=== PATIENT | male | born 1955 | race Hispanic/Latino ===

== ENCOUNTER 2018-10-04 05:12 | Emergency (ER) | payer BC ==
[2018-10-04 05:26] VITALS: RESP 16
[2018-10-04] MEDS ORDERED: Magnesium Citrate Oral SOL (300 ml) PO STA (05:46)
--- NOTE | 2018-10-04 05:55 | C.PDOC ---
History Of Present Illness 62 year old male with constipation since yesterday. Patient tried drinking salad dressing to relieve himself with no relief. He states he is able to go little watery amounts at a time but feels something blocking his rectum. Patient reports pain in his rectum but denies abdominal pain or rectal bleeding. Time Seen by Provider: 10/04/18 05:27 Chief Complaint (Nursing): GI Problem History Per: Patient History/Exam Limitations: no limitations Onset/Duration Of Symptoms: Days (Yesterday) Current Symptoms Are (Timing): Still Present Recent travel outside of the [place] States: No Past Medical History Reviewed: Historical Data, Nursing Documentation, Vital Signs Vital Signs: Last Vital Signs Temp 97.6 F 10/04/18 05:23 Pulse 98 H 10/04/18 05:23 Resp 16 10/04/18 05:23 BP 164/99 H 10/04/18 05:23 Pulse Ox 97 10/04/18 05:23 - Medical History PMH: HTN, Hyperlipidemia Family History: States: No Known Family Hx - Social History Hx Alcohol Use: Yes Hx Substance Use: No Review Of Systems Constitutional: Negative for: Fever, Chills Gastrointestinal: Positive for: Constipation, Rectal Pain. Negative for: Nausea, Vomiting, Abdominal Pain, Diarrhea, Other (Rectal bleed) Musculoskeletal: Negative for: Back Pain Physical Exam - Physical Exam Appears: Non-toxic, Other (Uncomfortable) Skin: Normal Color, Warm, No Rash Head: Atraumatic, Normacephalic Eye(s): bilateral: Normal Inspection Oral Mucosa: Moist Chest: Symmetrical Respiratory: No Accessory Muscle Use, Other (Normal inspiratory effort) Gastrointestinal/Abdominal: Soft, No Tenderness, No Distention Rectal: Other (Hard stool in rectum, no blood) Back: No CVA Tenderness Neurological/Psych: Oriented x3, Normal Speech, Normal Cranial Nerves (Grossly intact) ED Course And Treatment O2 Sat by Pulse Oximetry: 97 (Room air) Pulse Ox Interpretation: Normal Medical Decision Making Medical Decision Making: Fleet enema and mag citrate given patient had a partial BM after enema. he states he still feels like there is stool in his rectum but does admit to mild relief. he states he will go home to pass more stool. Disposition Counseled Patient/Family Regarding: Diagnosis, Need For Followup, Rx Given - Disposition Referrals: [facility] [Outside] Disposition: HOME/ ROUTINE Disposition Time: 06:28 Condition: STABLE Prescriptions: Polyethylene Glycol 3350 [Miralax] 17 gm PO ONCE #1 powd.pack Instructions: Constipation, Adult (DC) Forms: [facility] (Macedonian), General Discharge Instructions - Clinical Impression Clinical Impression: Constipation - PA / [employer] / Resident Statement MD/DO has reviewed & agrees with the documentation as recorded. - Scribe Statement The provider has reviewed the documentation as recorded by the Scribe [place] All medical record entries made by the Scribe were at my direction and personally dictated by me. I have reviewed the chart and agree that the record accurately reflects my personal performance of the history, physical exam, medical decision making, and the department course for this patient. I have also personally directed, reviewed, and agree with the discharge instructions and disposition.
[2018-10-04] MEDS ORDERED: Magnesium Citrate Oral SOL (300 ml) ONE (05:56)
[2018-10-04 07:06] VITALS: BP 147/82; PULSE 82; TEMP 98.4; O2SAT 98
== END 2018-10-04 07:14 | disposition home or self-care (01) ==
LOC: C.ER 05:12
DX: K59.00 Constipation, unspecified (principal)